=== PATIENT | female | born 1990 | race American Indian/Alaskan Native ===

== ENCOUNTER 2021-11-26 10:42 | Outpatient (CLI) | payer BC ==
--- NOTE | 2021-11-26 13:38 | Magnetic Resonance Report ---
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 TECHNIQUE: Multiplanar, multisequence MR images of the brain were obtained. COMPARISON: None available. FINDINGS: INTRACRANIAL: No restricted diffusion. No hemorrhage. Ventricular caliber is normal. No extra-axial c ollection. No mass. No herniation. Major intracranial vascular flow voids are preserved. No abnormal enhancement. ORBITS: No significant abnormality of visualized orbits. SINUSES / MASTOIDS: Moderate mucosal thickening in the right maxillary sinus. Otherwise paranasal sin uses and mastoid air cells are clear ADDITIONAL FINDINGS: None. IMPRESSION: 1. No significant intracranial abnormality. 2.. Moderate mucosal thickening in the right maxillary sinus. Signer Name: Miguel A Teran MD Signed: 11/26/2021 1:33 PM Workstation Name: [id number]
== END 2021-11-26 10:43 | disposition home or self-care (01) ==
LOC: MRI 10:42
PROVIDERS: ATTEND Internal Medicine
DX: G43.011 Migraine without aura, intractable, with status migrainosus (principal)
CPT/HCPCS: 70553; A9575

== ENCOUNTER 2022-04-09 12:17 | Emergency (ER) | payer OTHER, BC ==
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
[2022-04-09 14:08] VITALS: BP 132/78
== END 2022-04-09 14:07 | disposition home or self-care (01) ==
LOC: ED 12:17
DX: M79.18 Myalgia, other site (principal); V89.2XXA Person injured in unspecified motor-vehicle accident, traffic, initial encounter; Y93.89 Activity, other specified; Y92.89 Other specified places as the place of occurrence of the external cause; Y99.8 Other external cause status
CPT/HCPCS: 99282